=== PATIENT | female | born 1970 | race Hispanic/Latino ===

== ENCOUNTER 2022-02-23 22:58 | Emergency (ER) | payer SELFPAY ==
[2022-02-24] MEDS ORDERED: HYDROcodone/Acetaminophen 5/325 mg Tablet ONE (04:35)
== END 2022-02-24 04:47 | disposition home or self-care (01) ==
LOC: ERS 22:58
DX: S09.90XA Unspecified injury of head, initial encounter (principal); M54.2 Cervicalgia; E11.40 Type 2 diabetes mellitus with diabetic neuropathy, unspecified; W22.8XXA Striking against or struck by other objects, initial encounter
CPT/HCPCS: 70450; 72125

== ENCOUNTER 2022-03-16 19:47 | Inpatient (IN) | payer SELFPAY ==
[2022-03-16 20:16] LABS: #Basophils 0.1 thou/uL (0.0-0.2); #Eosinphils 0.8 thou/uL (0.0-0.7); #Lymphocytes 5.8 thou/uL (1.20-3.40); #Monocytes 1.1 thou/uL (0.11-0.59); #Neutrophils 7.1 thou/uL (1.40-6.50); %Basophils 0.8 % (0.0-1.0); %Eosinophils 5.2 % (0.0-10.0); %Monocytes 7.3 % (0.0-10.0); %Neutrophils 47.8 % (42.0-75.0); Hemoglobin 13.8 g/dL (12.0-16.0); Mean Corpuscular HGB CONC 31.9 g/dL (32.0-36.0); Mean Corpuscular Hemoglobin 29.7 pg (27.0-31.0); Mean Corpuscular Volume 93.1 fL (78.0-98.0); Mean Platelet Volume 9.1 fL (7.4-10.4); Platelet Count 355 thou/uL (130-400); RBC Distribution Width 12.2 % (11.5-14.5); Red Blood Cell (RBC) Count 4.64 mill/uL (4.20-5.40); White Blood Cell (WBC) Count 14.8 thou/uL (4.8-10.8)
[2022-03-16 20:49] LABS: ALT (SGPT) 24 U/L (8-55); AST (SGOT) 28 U/L (5-34); Alkaline Phosphatase 111 U/L (40-110); Anion Gap 18 mmol/L (10-20); BUN (Urea Nitrogen) 15 mg/dL (7.0-18.7); Bilirubin, Total 0.3 mg/dL (0.2-1.2); Calc. Creatinine Clearance 0 mL/min (70-130); Calcium 9.3 mg/dL (7.8-10.44); Carbon Dioxide 20 mmol/L (22-29); Chloride 106 mmol/L (98-107); Estimated GFR 91; Glucose 206 mg/dL (70-105); Potassium 4.1 mmol/L (3.5-5.1); Sodium 140 mmol/L (136-145)
[2022-03-16] MEDS ORDERED: Metoprolol Tartrate 5 MG/5 ML VIAL ONE (22:13)
[2022-03-16] MEDS ORDERED: Aspirin Chewable 81 MG TAB ONE (22:13)
[2022-03-16 23:43] VITALS: BMI 68.1
[2022-03-17] MEDS ORDERED: Dextrose 50% Abboject 50 ML SYRINGE SLOW IVP PRN (04:39)
[2022-03-17] MEDS ORDERED: HumaLOG 300 UNITS/3 ML VIAL SC PRN (04:39)
[2022-03-17] MEDS ORDERED: Acetaminophen 650 MG Suppository PR PRN (04:39)
[2022-03-17] MEDS ORDERED: Dextrose 5% in Water 1,000 ML IV PRN (04:39)
[2022-03-17] MEDS ORDERED: Ondansetron PF 4 MG/2 ML Vial IVP PRN (04:39)
[2022-03-17] MEDS ORDERED: Ondansetron ODT 4 MG TAB PO PRN (04:39)
[2022-03-17] MEDS: Enoxaparin Sodium 40 MG/0.4 ML SYRINGE SC SCH (08:52)
[2022-03-17] MEDS: Aspirin Chewable 81 MG TAB PO SCH (08:52)
[2022-03-17 09:26] LABS: Magnesium 1.8 mg/dL (1.6-2.6)
[2022-03-17] MEDS: HumaLOG 300 UNITS/3 ML VIAL SC PRN ×2 (12:58→17:50)
[2022-03-17] MEDS: Acetaminophen 325 MG TAB PO PRN (16:09)
[2022-03-17] MEDS: Metoprolol Tartrate 25 MG TAB PO SCH (20:55)
[2022-03-18 05:13] LABS: #Basophils 0.1 thou/uL (0.0-0.2); #Eosinphils 0.7 thou/uL (0.0-0.7); #Lymphocytes 4.4 thou/uL (1.20-3.40); #Monocytes 0.6 thou/uL (0.11-0.59); #Neutrophils 3.5 thou/uL (1.40-6.50); %Basophils 0.8 % (0.0-1.0); %Eosinophils 7.6 % (0.0-10.0); %Lymphocytes 47.4 % (21.0-51.0); %Monocytes 6.7 % (0.0-10.0); %Neutrophils 37.4 % (42.0-75.0); Hemoglobin 13.2 g/dL (12.0-16.0); Mean Corpuscular HGB CONC 32.4 g/dL (32.0-36.0); Mean Corpuscular Hemoglobin 30.3 pg (27.0-31.0); Mean Corpuscular Volume 93.5 fL (78.0-98.0); Mean Platelet Volume 8.8 fL (7.4-10.4); Platelet Count 307 thou/uL (130-400); RBC Distribution Width 12.2 % (11.5-14.5); Red Blood Cell (RBC) Count 4.35 mill/uL (4.20-5.40); White Blood Cell (WBC) Count 9.2 thou/uL (4.8-10.8)
[2022-03-18 05:22] LABS: Anion Gap 13 mmol/L (10-20); BUN (Urea Nitrogen) 13 mg/dL (7.0-18.7); Calc. Creatinine Clearance 290 mL/min (70-130); Calcium 8.6 mg/dL (7.8-10.44); Carbon Dioxide 25 mmol/L (22-29); Chloride 106 mmol/L (98-107); Estimated GFR 107; Glucose 131 mg/dL (70-105); Potassium 4.2 mmol/L (3.5-5.1); Sodium 140 mmol/L (136-145)
[2022-03-18] MEDS: Metoprolol Tartrate 25 MG TAB PO SCH ×2 (09:20→20:22)
[2022-03-18] MEDS: Aspirin Chewable 81 MG TAB PO SCH (09:26)
[2022-03-18] MEDS: Enoxaparin Sodium 40 MG/0.4 ML SYRINGE SC SCH (09:26)
[2022-03-18] MEDS: HumaLOG 300 UNITS/3 ML VIAL SC PRN (10:42)
[2022-03-18] MEDS: Acetaminophen 325 MG TAB PO PRN (20:22)
[2022-03-19 05:12] LABS: Anion Gap 14 mmol/L (10-20); BUN (Urea Nitrogen) 11 mg/dL (7.0-18.7); Calc. Creatinine Clearance 294 mL/min (70-130); Calcium 8.8 mg/dL (7.8-10.44); Carbon Dioxide 25 mmol/L (22-29); Chloride 106 mmol/L (98-107); Estimated GFR 107; Glucose 117 mg/dL (70-105); Phosphorus 3.8 mg/dL (2.3-4.7); Potassium 4.2 mmol/L (3.5-5.1); Sodium 141 mmol/L (136-145)
[2022-03-19] MEDS: Aspirin Chewable 81 MG TAB PO SCH (08:59)
[2022-03-19] MEDS: Enoxaparin Sodium 40 MG/0.4 ML SYRINGE SC SCH (08:59)
[2022-03-19] MEDS: Metoprolol Tartrate 25 MG TAB PO SCH (08:59)
[2022-03-19 12:01] VITALS: BP 116/62; TEMP 97.7
== END 2022-03-19 15:35 | disposition home or self-care (01) | DRG 309 ==
LOC: ERS 19:47 → 2SW 22:13 → OBSVTOIN 03-17 15:32
PROVIDERS: ADMIT Student in an Organized Health Care Education/Training Program; ATTEND Family Medicine
DX: I47.1 Supraventricular tachycardia (principal); Z68.44 Body mass index [BMI] 60.0-69.9, adult; E11.40 Type 2 diabetes mellitus with diabetic neuropathy, unspecified; D72.829 Elevated white blood cell count, unspecified; E66.01 Morbid (severe) obesity due to excess calories; Z20.822 Contact with and (suspected) exposure to COVID-19; R00.1 Bradycardia, unspecified; G47.33 Obstructive sleep apnea (adult) (pediatric); M54.12 Radiculopathy, cervical region; Z79.84 Long term (current) use of oral hypoglycemic drugs; Z79.899 Other long term (current) drug therapy; Z98.890 Other specified postprocedural states
CPT/HCPCS: 36415; 36416; 71045; 80048; 80053; 83735; 84100; 84443; 84484; 85025; 85379; 93005; 93306; 94760; 96374; J1650; J1815; U0003; U0005

== ENCOUNTER 2022-08-03 16:44 | Inpatient (IN) | payer OTHER, SELFPAY ==
[2022-08-03 17:11] LABS: #Basophils 0.1 thou/uL (0.0-0.2); #Eosinphils 0.5 thou/uL (0.0-0.7); #Lymphocytes 4.8 thou/uL (1.20-3.40); #Monocytes 0.7 thou/uL (0.11-0.59); #Neutrophils 5.1 thou/uL (1.40-6.50); %Basophils 0.5 % (0.0-1.0); %Eosinophils 4.5 % (0.0-10.0); %Lymphocytes 43.3 % (21.0-51.0); %Monocytes 6.2 % (0.0-10.0); %Neutrophils 45.4 % (42.0-75.0); Hemoglobin 13.8 g/dL (12.0-16.0); Mean Corpuscular HGB CONC 33.4 g/dL (32.0-36.0); Mean Corpuscular Hemoglobin 30.2 pg (27.0-31.0); Mean Corpuscular Volume 90.3 fl (78.0-98.0); Mean Platelet Volume 8.6 fL (7.4-10.4); Platelet Count 344 10x3/uL (130-400); RBC Distribution Width 12.4 % (11.5-14.5); Red Blood Cell (RBC) Count 4.57 mill/uL (4.20-5.40); White Blood Cell (WBC) Count 11.1 10x3/uL (4.8-10.8)
[2022-08-03 17:33] LABS: ALT (SGPT) 14 U/L (8-55); AST (SGOT) 19 U/L (5-34); Alkaline Phosphatase 107 U/L (40-110); Anion Gap 12 mmol/L (10-20); BUN (Urea Nitrogen) 9 mg/dL (7.0-18.7); Bilirubin, Total 0.4 mg/dL (0.2-1.2); Calc. Creatinine Clearance 0 mL/min (70-130); Calcium 9.1 mg/dL (7.8-10.44); Carbon Dioxide 24 mmol/L (22-29); Chloride 106 mmol/L (98-107); Estimated GFR 83; Globulin 3.4 g/dL (2.4-3.5); Glucose 175 mg/dL (70-105); Lipase 47 U/L (8-78); Potassium 4.2 mmol/L (3.5-5.1); Protein, Total 7.4 g/dL (6.0-8.3); Sodium 138 mmol/L (136-145)
[2022-08-03] MEDS ORDERED: HumaLOG 300 UNITS/3 ML VIAL SC PRN ×2 (19:05)
[2022-08-03] MEDS ORDERED: Dextrose 50% Abboject 50 ML SYRINGE SLOW IVP PRN (19:05)
[2022-08-03] MEDS ORDERED: Ondansetron ODT 4 MG TAB PO PRN (19:05)
[2022-08-03] MEDS ORDERED: Nitroglycerin 0.4 MG TAB (25 Tab Bottle) SL PRN (19:05)
[2022-08-03] MEDS ORDERED: Ondansetron PF 4 MG/2 ML Vial IVP PRN (19:05)
[2022-08-03] MEDS ORDERED: Dextrose 5% in Water 1,000 ML IV PRN (19:05)
[2022-08-03 20:31] LABS: Hemoglobin A1c 6.1 % (4.0-6.0)
[2022-08-03 20:48] LABS: Troponin I 0.016 ng/mL (< 0.028)
[2022-08-03] MEDS ORDERED: Senokot S 8.6-50 MG TAB PO PRN (21:00)
[2022-08-03] MEDS ORDERED: Naproxen 500 MG TAB PO PRN (21:00)
[2022-08-03] MEDS: Metoprolol Tartrate 25 MG TAB PO SCH (21:21)
[2022-08-04 00:12] LABS: Troponin I Less than 0.010 ng/mL (< 0.028)
[2022-08-04 00:16] VITALS: BMI 68.5
[2022-08-04 05:38] LABS: #Eosinphils 0.5 thou/uL (0.0-0.7); #Lymphocytes 4.1 thou/uL (1.20-3.40); #Monocytes 0.7 thou/uL (0.11-0.59); #Neutrophils 3.8 thou/uL (1.40-6.50); %Basophils 0.4 % (0.0-1.0); %Eosinophils 5.4 % (0.0-10.0); %Lymphocytes 45.2 % (21.0-51.0); %Monocytes 7.8 % (0.0-10.0); %Neutrophils 41.4 % (42.0-75.0); Hemoglobin 12.7 g/dL (12.0-16.0); Mean Corpuscular HGB CONC 34.4 g/dL (32.0-36.0); Mean Corpuscular Hemoglobin 31.3 pg (27.0-31.0); Mean Corpuscular Volume 90.8 fl (78.0-98.0); Mean Platelet Volume 8.8 fL (7.4-10.4); Platelet Count 308 10x3/uL (130-400); RBC Distribution Width 12.4 % (11.5-14.5); Red Blood Cell (RBC) Count 4.06 mill/uL (4.20-5.40); White Blood Cell (WBC) Count 9.1 10x3/uL (4.8-10.8)
[2022-08-04 05:39] LABS: Anion Gap 11 mmol/L (10-20); BUN (Urea Nitrogen) 8 mg/dL (7.0-18.7); Calc. Creatinine Clearance 275 mL/min (70-130); Calcium 8.6 mg/dL (7.8-10.44); Carbon Dioxide 26 mmol/L (22-29); Cardiac Risk 3.2 (Less than 4.5); Chloride 106 mmol/L (98-107); Cholesterol 158 mg/dl (< 200 Desired); Estimated GFR 105; Glucose 126 mg/dL (70-105); HDL Cholesterol 50 mg/dL (>60 Neg Risk); LDL Cholesterol, Calculated 84 mg/dL; Potassium 3.6 mmol/L (3.5-5.1); Sodium 139 mmol/L (136-145); Triglycerides 120 mg/dL (Less than 150)
[2022-08-04] MEDS ORDERED: Electrolyte Replacement Protocol 1 EACH FS SCH (07:00)
[2022-08-04 08:51] LABS: Magnesium 1.8 mg/dL (1.6-2.6)
[2022-08-04] MEDS ORDERED: Magnesium 2 GM/50 ML(in water) 2 GM in Premix Bag 1 BAG IVPB SCH (09:00)
[2022-08-04] MEDS ORDERED: Enoxaparin Sodium 40 MG/0.4 ML SYRINGE SC SCH (09:00)
[2022-08-04] MEDS ORDERED: FLU VACC QS2022-23(6MOS UP)/PF 60 MCG/0.5 ML SYRINGE IM ONE (09:00)
[2022-08-04] MEDS: Aspirin Chewable 81 MG TAB PO SCH (09:15)
[2022-08-04] MEDS: Flecainide 50 MG TAB PO SCH ×2 (09:16→19:48)
[2022-08-04] MEDS: Metoprolol Tartrate 25 MG TAB PO SCH ×2 (09:18→19:49)
[2022-08-04] MEDS ORDERED: Flecainide 50 MG TAB PO SCH (21:00)
[2022-08-05 05:24] LABS: Magnesium 2.1 mg/dL (1.6-2.6)
[2022-08-05 07:41] LABS: Anion Gap 15 mmol/L (10-20); BUN (Urea Nitrogen) 11 mg/dL (7.0-18.7); Calc. Creatinine Clearance 306 mL/min (70-130); Calcium 8.7 mg/dL (7.8-10.44); Carbon Dioxide 21 mmol/L (22-29); Chloride 105 mmol/L (98-107); Estimated GFR 108; Glucose 122 mg/dL (70-105); Potassium 4.2 mmol/L (3.5-5.1); Sodium 137 mmol/L (136-145)
[2022-08-05] MEDS: Flecainide 50 MG TAB PO SCH (10:14)
[2022-08-05] MEDS: Aspirin Chewable 81 MG TAB PO SCH (10:14)
[2022-08-05] MEDS: Metoprolol Tartrate 25 MG TAB PO SCH (10:14)
[2022-08-05 16:04] VITALS: BP 112/65; TEMP 98.3
== END 2022-08-05 17:48 | disposition home or self-care (01) | DRG 309 ==
LOC: ERS 16:44 → 2SW 18:48 → OBSVTOIN 08-04 13:32
PROVIDERS: ADMIT Internal Medicine; ATTEND Internal Medicine
DX: I47.1 Supraventricular tachycardia (principal); Z68.44 Body mass index [BMI] 60.0-69.9, adult; E11.40 Type 2 diabetes mellitus with diabetic neuropathy, unspecified; Z20.822 Contact with and (suspected) exposure to COVID-19; E66.01 Morbid (severe) obesity due to excess calories; K21.9 Gastro-esophageal reflux disease without esophagitis; E83.42 Hypomagnesemia; E11.9 Type 2 diabetes mellitus without complications; Z79.84 Long term (current) use of oral hypoglycemic drugs; Z79.82 Long term (current) use of aspirin
CPT/HCPCS: 36415; 36416; 71045; 80048; 80053; 80061; 83036; 83690; 83735; 83880; 84484; 85025; 90471; 90686; 93005; 93010; 94760; 96374; G0008; G0378; J1815; J3475; U0003; U0005

== ENCOUNTER 2023-07-10 20:39 | Inpatient (IN) | payer OTHER, SELFPAY ==
[2023-07-10 21:10] LABS: Manual Diff?? YES
[2023-07-10 21:11] LABS: #Basophils 0.1 thou/uL (0.0-0.2); #Eosinphils 0.5 thou/uL (0.0-0.7); #Monocytes 0.6 thou/uL (0.11-0.59); #Neutrophils 3.9 thou/uL (1.40-6.50); %Basophils 0.5 % (0.0-1.0); %Eosinophils 4.8 % (0.0-10.0); %Lymphocytes 45.9 % (21.0-51.0); %Monocytes 6.8 % (0.0-10.0); %Neutrophils 41.7 % (42.0-75.0); Delete Auto Diff?? YES; Hematocrit 38.5 % (36.0-47.0); Hemoglobin 12.7 g/dL (12.0-16.0); Mean Corpuscular Hemoglobin 29.1 pg (27.0-31.0); Mean Corpuscular Volume 88.3 fl (78.0-98.0); Mean Platelet Volume 11.1 fL (7.4-10.4); Platelet Count 361 10x3/uL (130-400); RBC Distribution Width 14.1 % (11.5-14.5); Red Blood Cell (RBC) Count 4.36 mill/uL (4.20-5.40); White Blood Cell (WBC) Count 9.4 10x3/uL (4.8-10.8)
[2023-07-10 21:33] LABS: ALT (SGPT) 13 U/L (8-55); AST (SGOT) 18 U/L (5-34); Albumin 3.8 g/dL (3.5-5.0); Alkaline Phosphatase 87 U/L (40-110); Anion Gap 12 mmol/L (10-20); BUN (Urea Nitrogen) 11 mg/dL (9.8-20.1); Bilirubin, Total 0.3 mg/dL (0.2-1.2); Calc. Creatinine Clearance 0 mL/min (70-130); Calcium 8.7 mg/dL (7.8-10.44); Carbon Dioxide 25 mmol/L (22-29); Chloride 106 mmol/L (98-107); Estimated GFR 96; Globulin 3.5 g/dL (2.4-3.5); Glucose 131 mg/dL (70-105); Potassium 3.9 mmol/L (3.5-5.1); Protein, Total 7.3 g/dL (6.0-8.3); Sodium 139 mmol/L (136-145)
[2023-07-10 21:36] LABS: Troponin I Less than 0.010 ng/mL (< 0.028)
[2023-07-10 22:00] LABS: CellaVision Operator ID LAB.CLH1; Eosinophils 3 % (0-10); Lymphocytes 34 % (21-51); Monocytes 5 % (0-10); Neutrophil 54 % (42-75); Platelet Adequacy Comment Platelets Normal; Reactive Lymphocytes 3 % (0-10); Total Cell Count 100
[2023-07-10] MEDS ORDERED: Aspirin Chewable 81 MG TAB ONE (23:23)
[2023-07-10] MEDS ORDERED: Acetaminophen 325 MG TAB PO PRN (23:49)
[2023-07-10] MEDS ORDERED: Senokot S 8.6-50 MG TAB PO PRN (23:49)
[2023-07-10] MEDS ORDERED: Ondansetron ODT 4 MG TAB PO PRN (23:49)
[2023-07-11 00:20] VITALS: BMI 70.9
[2023-07-11 00:42] LABS: Troponin I Less than 0.010 ng/mL (< 0.028)
[2023-07-11 04:16] LABS: #Basophils 0.1 thou/uL (0.0-0.2); #Eosinphils 0.5 thou/uL (0.0-0.7); #Monocytes 0.8 thou/uL (0.11-0.59); %Basophils 0.5 % (0.0-1.0); %Eosinophils 5.2 % (0.0-10.0); %Lymphocytes 48.1 % (21.0-51.0); %Monocytes 7.7 % (0.0-10.0); %Neutrophils 38.3 % (42.0-75.0); Hematocrit 36.3 % (36.0-47.0); Hemoglobin 11.9 g/dL (12.0-16.0); Mean Corpuscular HGB CONC 32.8 g/dL (32.0-36.0); Mean Corpuscular Hemoglobin 29.2 pg (27.0-31.0); Mean Platelet Volume 11.2 fL (7.4-10.4); Platelet Count 338 10x3/uL (130-400); RBC Distribution Width 14.2 % (11.5-14.5); Red Blood Cell (RBC) Count 4.08 mill/uL (4.20-5.40); White Blood Cell (WBC) Count 10.4 10x3/uL (4.8-10.8)
[2023-07-11 04:51] LABS: Troponin I Less than 0.010 ng/mL (< 0.028)
[2023-07-11] MEDS: Mometasone 200 MCG HFA INHALER (RT USE) INH SCH ×2 (07:08→19:04)
[2023-07-11] MEDS: Aspirin Chewable 81 MG TAB PO SCH (08:59)
[2023-07-11] MEDS ORDERED: metFORMIN 500 MG TAB PO SCH (09:00)
[2023-07-11] MEDS: Metoprolol Tartrate 25 MG TAB PO SCH ×2 (09:28→20:55)
[2023-07-11] MEDS ORDERED: Iopamidol-370 76% 500 ML MDV (1 ML CHARGE) ONE (09:42)
[2023-07-11] MEDS: Flecainide Acetate 100 MG TAB PO SCH ×2 (11:19→20:55)
[2023-07-11] MEDS ORDERED: Glucagon 1 MG/ML KIT IM PRN (12:24)
[2023-07-11] MEDS ORDERED: Dextrose 5% in Water 1,000 ML IV PRN (12:24)
[2023-07-11] MEDS ORDERED: Dextrose 50% Abboject 50 ML SYRINGE SLOW IVP PRN (12:24)
[2023-07-11] MEDS ORDERED: HumaLOG 300 UNITS/3 ML VIAL SC PRN (12:24)
[2023-07-11] MEDS ORDERED: predniSONE 20 MG TAB PO SCH (12:30)
[2023-07-11] MEDS: Ipratropium/Albuterol 3 ML NEB IPPB SCH ×3 (13:12→23:35)
[2023-07-12 05:48] LABS: Anion Gap 12 mmol/L (10-20); BUN (Urea Nitrogen) 11 mg/dL (9.8-20.1); Calc. Creatinine Clearance 299 mL/min (70-130); Carbon Dioxide 21 mmol/L (22-29); Chloride 106 mmol/L (98-107); Estimated GFR 106; Glucose 138 mg/dL (70-105); Sodium 135 mmol/L (136-145)
[2023-07-12] MEDS: Mometasone 200 MCG HFA INHALER (RT USE) INH SCH ×2 (07:20→18:21)
[2023-07-12] MEDS: Ipratropium/Albuterol 3 ML NEB IPPB SCH ×4 (07:21→23:54)
[2023-07-12] MEDS: Aspirin Chewable 81 MG TAB PO SCH (08:39)
[2023-07-12] MEDS: Gabapentin 300 MG CAP PO SCH (08:39)
[2023-07-12] MEDS: Metoprolol Tartrate 25 MG TAB PO SCH ×2 (08:39→21:22)
[2023-07-12] MEDS: predniSONE 20 MG TAB PO SCH (08:39)
[2023-07-12] MEDS: Flecainide Acetate 100 MG TAB PO SCH ×2 (08:39→21:22)
[2023-07-12 12:58] LABS: SARS-CoV-2 NAA Rapid Test Not Detected (NotDetected)
[2023-07-12 15:17] LABS: Actual Bicarbonate (HCO3v) 27.5 mEq/L (22-28); Base Excess 1.2 mEq/L (-2.0 to +3.0); Calcium, Ionized (venous) 1.19 mmol/L (1.16-1.32); Chloride (VBG) 102 mmol/L (98-106); Hematocrit-VBG 42 % (36.0-47.0); Hemoglobin (Hb) 14.2 g/dL (11.7-16.0); Potassium (VBG) 4.49 mmol/L (3.70-5.30); Sodium 141 mmol/L (133-146); pH (venous) 7.358 (7.32-7.43)
[2023-07-13 04:40] LABS: Actual Bicarbonate (HCO3v) 23.8 mEq/L (22-28); Base Excess -2.1 mEq/L (-2.0 to +3.0); Calcium, Ionized (venous) 1.16 mmol/L (1.16-1.32); Chloride (VBG) 102 mmol/L (98-106); Hematocrit-VBG 40 % (36.0-47.0); Hemoglobin (Hb) 13.7 g/dL (11.7-16.0); Potassium (VBG) 3.85 mmol/L (3.70-5.30); Sodium 140 mmol/L (133-146)
[2023-07-13 04:42] LABS: #Basophils 0.1 thou/uL (0.0-0.2); #Eosinphils 0.1 thou/uL (0.0-0.7); #Neutrophils 6.3 thou/uL (1.40-6.50); %Basophils 0.6 % (0.0-1.0); %Eosinophils 1.1 % (0.0-10.0); %Lymphocytes 41.6 % (21.0-51.0); %Monocytes 7.4 % (0.0-10.0); %Neutrophils 49.1 % (42.0-75.0); Hematocrit 39.8 % (36.0-47.0); Hemoglobin 12.8 g/dL (12.0-16.0); Mean Corpuscular HGB CONC 32.2 g/dL (32.0-36.0); Mean Corpuscular Hemoglobin 28.6 pg (27.0-31.0); Mean Platelet Volume 10.9 fL (7.4-10.4); Platelet Count 386 10x3/uL (130-400); RBC Distribution Width 14.3 % (11.5-14.5); Red Blood Cell (RBC) Count 4.47 mill/uL (4.20-5.40); White Blood Cell (WBC) Count 12.8 10x3/uL (4.8-10.8)
[2023-07-13 04:50] LABS: Hemoglobin A1c 6.4 % (4.0-6.0)
[2023-07-13 05:11] LABS: Anion Gap 12 mmol/L (10-20); BUN (Urea Nitrogen) 13 mg/dL (9.8-20.1); Calc. Creatinine Clearance 278 mL/min (70-130); Carbon Dioxide 26 mmol/L (22-29); Cardiac Risk 2.6 (Less than 4.5); Chloride 104 mmol/L (98-107); Cholesterol 186 mg/dl (< 200 Desired); Estimated GFR 103; Glucose 121 mg/dL (70-105); HDL Cholesterol 71 mg/dL (>60 Neg Risk); LDL Cholesterol, Calculated 96 mg/dL; Potassium 3.8 mmol/L (3.5-5.1); Sodium 138 mmol/L (136-145); Triglycerides 94 mg/dL (Less than 150)
[2023-07-13] MEDS: Ipratropium/Albuterol 3 ML NEB IPPB SCH ×2 (07:08→14:01)
[2023-07-13] MEDS: Mometasone 200 MCG HFA INHALER (RT USE) INH SCH (07:09)
[2023-07-13] MEDS: Aspirin Chewable 81 MG TAB PO SCH (09:20)
[2023-07-13] MEDS: Gabapentin 300 MG CAP PO SCH (09:20)
[2023-07-13] MEDS: predniSONE 20 MG TAB PO SCH (09:20)
[2023-07-13] MEDS: Flecainide Acetate 100 MG TAB PO SCH (09:20)
[2023-07-13] MEDS: Metoprolol Tartrate 25 MG TAB PO SCH (09:21)
[2023-07-13 15:26] VITALS: BP 113/57; TEMP 98.3
[2023-07-14] MEDS ORDERED: FLU VACC QS2023-24(6MOS UP)/PF 60 MCG/0.5 ML SYRINGE IM ONE (09:00)
== END 2023-07-13 14:45 | disposition home or self-care (01) | DRG 313 ==
LOC: ERS 20:39 → 2NO 23:45 → OBSVTOIN 07-12 08:18
PROVIDERS: ADMIT Student in an Organized Health Care Education/Training Program; ATTEND Family Medicine
PROC: 4A133R1 Monitoring of Arterial Saturation, Peripheral, Percutaneous Approach (ICD-10-PCS; principal; 2023-07-12)
DX: R07.89 Other chest pain (principal); I47.10 Supraventricular tachycardia, unspecified; I50.32 Chronic diastolic (congestive) heart failure; Z68.45 Body mass index [BMI] 70 or greater, adult; E66.01 Morbid (severe) obesity due to excess calories; E11.40 Type 2 diabetes mellitus with diabetic neuropathy, unspecified; Z79.82 Long term (current) use of aspirin; Z79.899 Other long term (current) drug therapy; Z79.84 Long term (current) use of oral hypoglycemic drugs; Z90.49 Acquired absence of other specified parts of digestive tract; Z98.890 Other specified postprocedural states; K21.9 Gastro-esophageal reflux disease without esophagitis; Z82.49 Family history of ischemic heart disease and other diseases of the circulatory system; R06.2 Wheezing; Z11.52 Encounter for screening for COVID-19
CPT/HCPCS: 36415; 36416; 71045; 71275; 80048; 80053; 80061; 82805; 83036; 83735; 83880; 84443; 84484; 85025; 93005; 94640; 94760; G0378; J1650; J1815; J7512; J7620; Q9967

== ENCOUNTER 2024-03-16 23:18 | Inpatient (IN) | payer OTHER, SELFPAY ==
[2024-03-16] MEDS ORDERED: Sodium Chloride 0.9% 100 ML ONE (23:51)
[2024-03-16] MEDS ORDERED: cefTRIAXone (ROCEPHIN) 1 GM VIAL ONE (23:51)
[2024-03-16] MEDS ORDERED: Dexamethasone 10 MG/ML VIAL ONE (23:51)
[2024-03-16] MEDS ORDERED: Acetaminophen 500 MG TAB ONE (23:51)
[2024-03-16 23:58] LABS: #Basophils Less than 0.03 10x3/uL (0.0-0.2); %Basophils 0.3 % (0.0-1.0); %Eosinophils 3.2 % (0.0-10.0); %Lymphocytes 19.7 % (21.0-51.0); %Monocytes 9.2 % (0.0-10.0); %Neutrophils 67.3 % (42.0-75.0); Hematocrit 36.7 % (36.0-47.0); Hemoglobin 12.1 g/dL (12.0-16.0); Mean Corpuscular Hemoglobin 28.9 pg (27.0-31.0); Mean Corpuscular Volume 87.8 fL (78.0-98.0); Mean Platelet Volume 10.7 fL (7.4-10.4); Platelet Count 331 10x3/uL (130-400); RBC Distribution Width 14.5 % (11.5-14.5); Red Blood Cell (RBC) Count 4.18 mill/uL (4.20-5.40)
[2024-03-17 00:14] LABS: ALT (SGPT) 17 U/L (8-55); AST (SGOT) 21 U/L (5-34); Albumin 3.3 g/dL (3.5-5.0); Alkaline Phosphatase 95 U/L (40-110); Anion Gap 15 mmol/L (10-20); BUN (Urea Nitrogen) 8 mg/dL (9.8-20.1); Bilirubin, Total 0.4 mg/dL (0.2-1.2); Calc. Creatinine Clearance 0 mL/min (70-130); Calcium 8.4 mg/dL (7.8-10.44); Carbon Dioxide 21 mmol/L (22-29); Chloride 104 mmol/L (98-107); Estimated GFR 93; Globulin 3.6 g/dL (2.4-3.5); Glucose 245 mg/dL (70-105); Potassium 4.2 mmol/L (3.5-5.1); Protein, Total 6.9 g/dL (6.0-8.3); Sodium 136 mmol/L (136-145)
[2024-03-17 00:17] LABS: Troponin I Less than 0.010 ng/mL (< 0.028)
[2024-03-17 01:25] LABS: Influenza A by NAA Not Detected (NotDetected); Influenza B by NAA Not Detected (NotDetected); SARS-CoV-2 NAA Rapid Test Not Detected (NotDetected)
[2024-03-17] MEDS ORDERED: Azithromycin 500 MG VIAL ONE (01:54)
[2024-03-17] MEDS ORDERED: Ondansetron PF 4 MG/2 ML Vial IVP PRN (02:07)
[2024-03-17] MEDS ORDERED: Ondansetron ODT 4 MG TAB PO PRN (02:07)
[2024-03-17] MEDS ORDERED: Acetaminophen 650 MG Suppository PR PRN (02:07)
[2024-03-17] MEDS ORDERED: Ipratropium/Albuterol 3 ML NEB NEB PRN (02:10)
[2024-03-17] MEDS ORDERED: GUAIFENESIN SF SOLN 200 MG/10 ML UDCUP PO PRN (02:11)
[2024-03-17] MEDS ORDERED: Glucagon 1 MG/ML KIT IM PRN (02:53)
[2024-03-17] MEDS ORDERED: Insulin Lispro 100 UNIT/ML 10 ML VIAL SC PRN (02:53)
[2024-03-17] MEDS ORDERED: Dextrose 50% Abboject 50 ML SYRINGE SLOW IVP PRN (02:53)
[2024-03-17] MEDS ORDERED: Dextrose 5% in Water 1,000 ML IV PRN (02:53)
[2024-03-17 03:26] VITALS: BMI 66.4
[2024-03-17 04:01] LABS: #Basophils 0.04 10x3/uL (0.0-0.2); #Eosinphils Less than 0.03 10x3/uL (0.0-0.7); %Basophils 0.6 % (0.0-1.0); %Eosinophils 0.3 % (0.0-10.0); %Lymphocytes 15.3 % (21.0-51.0); %Monocytes 3.9 % (0.0-10.0); %Neutrophils 79.4 % (42.0-75.0); Hematocrit 39.2 % (36.0-47.0); Hemoglobin 12.7 g/dL (12.0-16.0); Mean Corpuscular HGB CONC 32.4 g/dL (32.0-36.0); Mean Corpuscular Hemoglobin 28.2 pg (27.0-31.0); Mean Corpuscular Volume 87.1 fL (78.0-98.0); Mean Platelet Volume 10.6 fL (7.4-10.4); Platelet Count 347 10x3/uL (130-400); RBC Distribution Width 14.5 % (11.5-14.5)
[2024-03-17 04:21] LABS: Anion Gap 15 mmol/L (10-20); BUN (Urea Nitrogen) 7 mg/dL (9.8-20.1); Calc. Creatinine Clearance 258 mL/min (70-130); Calcium 8.8 mg/dL (7.8-10.44); Carbon Dioxide 22 mmol/L (22-29); Chloride 104 mmol/L (98-107); Estimated GFR 99; Glucose 171 mg/dL (70-105); Potassium 4.3 mmol/L (3.5-5.1); Sodium 137 mmol/L (136-145)
[2024-03-17] MEDS: Insulin Lispro 100 UNIT/ML 10 ML VIAL SC PRN (06:23)
[2024-03-17] MEDS: Ipratropium/Albuterol 3 ML NEB NEB SCH (06:44)
[2024-03-17 07:23] LABS: Legionella Urinary Ag Negative (Negative); Strep pneumo Urine Ag NEGATIVE (NEGATIVE)
[2024-03-17] MEDS: Aspirin Chewable 81 MG TAB PO SCH (08:19)
[2024-03-17] MEDS: Famotidine 20 MG TAB PO SCH (08:19)
[2024-03-17] MEDS: metFORMIN 500 MG TAB PO SCH (08:19)
[2024-03-17] MEDS: Metoprolol Tartrate 25 MG TAB PO SCH (08:19)
[2024-03-17] MEDS: guaiFENesin/DM ER PO SCH (08:19)
[2024-03-17] MEDS: Gabapentin 300 MG CAP PO SCH (08:19)
[2024-03-17] MEDS: Enoxaparin 40 MG (0.4 mL) SYRINGE SC SCH (08:20)
[2024-03-17] MEDS: Acetaminophen 325 MG TAB PO PRN (08:34)
[2024-03-17] MEDS ORDERED: Flecainide Acetate 100 MG TAB PO SCH (09:00)
[2024-03-17] MEDS ORDERED: Iopamidol-370 76% 500 ML MDV (1 ML CHARGE) ONE (15:02)
[2024-03-17] MEDS: Melatonin 3 MG TAB PO PRN (20:28)
[2024-03-17] MEDS: cefTRIAXone\\ROCEPHIN 1 GM in Sodium Chloride 0.9% 100 ML IVPB SCH (23:38)
[2024-03-18] MEDS: Azithromycin 500 MG in Sodium Chloride 0.9% 250 ML 250 ML IVPB SCH (01:25)
[2024-03-18] MEDS ORDERED: Vancomycin 1.5 GM in Sodium Chloride 0.9% 250 ML 300 ML IVPB SCH (10:54)
[2024-03-18] MEDS ORDERED: VANCOMYCIN IVPB PRN (11:00)
[2024-03-18] MEDS: Cefepime 2 GM in Sodium Chloride 0.9% 100 ML IVPB SCH (11:45)
[2024-03-18] MEDS ORDERED: Cefepime 2 GM in Sodium Chloride 0.9% 100 ML IVPB SCH (12:00)
[2024-03-18 12:30] LABS: #Basophils 0.03 10x3/uL (0.0-0.2); #Eosinphils Less than 0.03 10x3/uL (0.0-0.7); %Basophils 0.3 % (0.0-1.0); %Eosinophils 0.2 % (0.0-10.0); %Lymphocytes 26.8 % (21.0-51.0); %Monocytes 7.1 % (0.0-10.0); %Neutrophils 65.3 % (42.0-75.0); Hematocrit 38.6 % (36.0-47.0); Hemoglobin 12.6 g/dL (12.0-16.0); Mean Corpuscular HGB CONC 32.6 g/dL (32.0-36.0); Mean Corpuscular Hemoglobin 28.8 pg (27.0-31.0); Mean Corpuscular Volume 88.3 fL (78.0-98.0); Mean Platelet Volume 10.7 fL (7.4-10.4); Platelet Count 376 10x3/uL (130-400); RBC Distribution Width 14.6 % (11.5-14.5); Red Blood Cell (RBC) Count 4.37 mill/uL (4.20-5.40)
[2024-03-18] MEDS: Vancomycin (BATCH) 2.5 GM in Premix 1 BAG IVPB SCH (13:00)
[2024-03-18 14:52] LABS: Anion Gap 13 mmol/L (10-20); BUN (Urea Nitrogen) 11 mg/dL (9.8-20.1); Calc. Creatinine Clearance 281 mL/min (70-130); Calcium 8.5 mg/dL (7.8-10.44); Carbon Dioxide 24 mmol/L (22-29); Chloride 104 mmol/L (98-107); Estimated GFR 105; Glucose 119 mg/dL (70-105); Potassium 3.9 mmol/L (3.5-5.1); Sodium 137 mmol/L (136-145)
[2024-03-18] MEDS: Vancomycin (BATCH) 1.25 GM in Premix 1 BAG IVPB SCH (23:32)
[2024-03-19 04:02] LABS: #Basophils Less than 0.03 10x3/uL (0.0-0.2); %Basophils 0.3 % (0.0-1.0); %Eosinophils 1.3 % (0.0-10.0); %Monocytes 12.4 % (0.0-10.0); %Neutrophils 40.7 % (42.0-75.0); Hematocrit 36.2 % (36.0-47.0); Hemoglobin 11.5 g/dL (12.0-16.0); Mean Corpuscular HGB CONC 31.8 g/dL (32.0-36.0); Mean Corpuscular Hemoglobin 28.6 pg (27.0-31.0); Mean Platelet Volume 10.4 fL (7.4-10.4); Platelet Count 314 10x3/uL (130-400); RBC Distribution Width 14.6 % (11.5-14.5); Red Blood Cell (RBC) Count 4.02 mill/uL (4.20-5.40)
[2024-03-19 04:22] LABS: Anion Gap 14 mmol/L (10-20); BUN (Urea Nitrogen) 11 mg/dL (9.8-20.1); Calc. Creatinine Clearance 265 mL/min (70-130); Calcium 7.9 mg/dL (7.8-10.44); Carbon Dioxide 21 mmol/L (22-29); Chloride 107 mmol/L (98-107); Estimated GFR 102; Glucose 110 mg/dL (70-105); Potassium 3.9 mmol/L (3.5-5.1); Sodium 138 mmol/L (136-145)
[2024-03-19 04:27] LABS: Vancomycin, Random 27.8 ug/mL (See Comment)
[2024-03-20 04:49] LABS: #Basophils Less than 0.03 10x3/uL (0.0-0.2); %Basophils 0.3 % (0.0-1.0); %Eosinophils 5.2 % (0.0-10.0); %Lymphocytes 54.7 % (21.0-51.0); %Monocytes 10.5 % (0.0-10.0); %Neutrophils 29.2 % (42.0-75.0); Hematocrit 36.9 % (36.0-47.0); Hemoglobin 11.8 g/dL (12.0-16.0); Mean Corpuscular Hemoglobin 29.1 pg (27.0-31.0); Mean Corpuscular Volume 90.9 fL (78.0-98.0); Mean Platelet Volume 10.3 fL (7.4-10.4); Platelet Count 317 10x3/uL (130-400); RBC Distribution Width 14.6 % (11.5-14.5); Red Blood Cell (RBC) Count 4.06 mill/uL (4.20-5.40)
[2024-03-20 05:07] LABS: Anion Gap 11 mmol/L (10-20); BUN (Urea Nitrogen) 9 mg/dL (9.8-20.1); Calc. Creatinine Clearance 281 mL/min (70-130); Calcium 8.9 mg/dL (7.8-10.44); Carbon Dioxide 26 mmol/L (22-29); Chloride 106 mmol/L (98-107); Estimated GFR 105; Glucose 122 mg/dL (70-105); Potassium 3.9 mmol/L (3.5-5.1); Sodium 139 mmol/L (136-145)
[2024-03-20] MEDS: LevoFLOXacin 750 MG TAB PO SCH (21:48)
[2024-03-21 05:04] LABS: #Basophils 0.05 10x3/uL (0.0-0.2); %Basophils 0.6 % (0.0-1.0); %Eosinophils 4.8 % (0.0-10.0); %Lymphocytes 53.8 % (21.0-51.0); %Monocytes 6.2 % (0.0-10.0); %Neutrophils 34.4 % (42.0-75.0); Hematocrit 38.6 % (36.0-47.0); Hemoglobin 12.3 g/dL (12.0-16.0); Mean Corpuscular HGB CONC 31.9 g/dL (32.0-36.0); Mean Corpuscular Hemoglobin 28.1 pg (27.0-31.0); Mean Corpuscular Volume 88.1 fL (78.0-98.0); Mean Platelet Volume 10.8 fL (7.4-10.4); Platelet Count 368 10x3/uL (130-400); RBC Distribution Width 14.5 % (11.5-14.5); Red Blood Cell (RBC) Count 4.38 mill/uL (4.20-5.40)
[2024-03-21 05:19] LABS: Anion Gap 12 mmol/L (10-20); BUN (Urea Nitrogen) 12 mg/dL (9.8-20.1); Calc. Creatinine Clearance 251 mL/min (70-130); Calcium 8.8 mg/dL (7.8-10.44); Carbon Dioxide 27 mmol/L (22-29); Chloride 107 mmol/L (98-107); Estimated GFR 96; Glucose 114 mg/dL (70-105); Sodium 142 mmol/L (136-145)
[2024-03-22 04:59] LABS: #Basophils Less than 0.03 10x3/uL (0.0-0.2); %Basophils 0.2 % (0.0-1.0); %Eosinophils 5.7 % (0.0-10.0); %Lymphocytes 52.1 % (21.0-51.0); %Monocytes 6.3 % (0.0-10.0); %Neutrophils 35.6 % (42.0-75.0); Hematocrit 36.1 % (36.0-47.0); Hemoglobin 11.5 g/dL (12.0-16.0); Mean Corpuscular HGB CONC 31.9 g/dL (32.0-36.0); Mean Corpuscular Hemoglobin 28.8 pg (27.0-31.0); Mean Corpuscular Volume 90.5 fL (78.0-98.0); Mean Platelet Volume 10.6 fL (7.4-10.4); Platelet Count 344 10x3/uL (130-400); RBC Distribution Width 14.1 % (11.5-14.5); Red Blood Cell (RBC) Count 3.99 mill/uL (4.20-5.40)
[2024-03-22 05:12] LABS: Anion Gap 11 mmol/L (10-20); BUN (Urea Nitrogen) 11 mg/dL (9.8-20.1); Calc. Creatinine Clearance 289 mL/min (70-130); Calcium 8.6 mg/dL (7.8-10.44); Carbon Dioxide 27 mmol/L (22-29); Chloride 105 mmol/L (98-107); Estimated GFR 106; Glucose 126 mg/dL (70-105); Potassium 4.1 mmol/L (3.5-5.1); Sodium 139 mmol/L (136-145)
[2024-03-22 09:18] VITALS: BP 109/55; TEMP 97.9
== END 2024-03-22 12:14 | disposition home or self-care (01) | DRG 193 ==
LOC: ERS 23:18 → 2SE 03-17 03:11 → OBSVTOIN 03-17 03:11 → 2NO 03-19 16:13
PROVIDERS: ADMIT Student in an Organized Health Care Education/Training Program; ATTEND Family Medicine
DX: J18.9 Pneumonia, unspecified organism (principal); J96.01 Acute respiratory failure with hypoxia; I47.10 Supraventricular tachycardia, unspecified; I50.32 Chronic diastolic (congestive) heart failure; Z68.44 Body mass index [BMI] 60.0-69.9, adult; E66.2 Morbid (severe) obesity with alveolar hypoventilation; E11.9 Type 2 diabetes mellitus without complications; Z79.84 Long term (current) use of oral hypoglycemic drugs; Z79.899 Other long term (current) drug therapy; Z90.49 Acquired absence of other specified parts of digestive tract; Z98.890 Other specified postprocedural states; Z79.4 Long term (current) use of insulin; Z79.82 Long term (current) use of aspirin
CPT/HCPCS: 36415; 36416; 71045; 71275; 80048; 80053; 80202; 83605; 83880; 84484; 85025; 87040; 87081; 87449; 87633; 87899; 93005; 94640; 94760; 96365; 96367; 96375; J0456; J0692; J0696; J1100; J1650; J1815; J3370; J7050; J7620; Q9967